=== PATIENT | male | born 1960 | race Caucasian/White ===

== ENCOUNTER 2024-08-22 14:15 | Outpatient (RCR) | payer OTHER, SELFPAY ==
--- NOTE | 2024-07-26 11:54 | OTOPEVAL1 ---
Assessment and note entered by Kamlesh Francis, JAY/Dianna, CHT Evaluation Information Assessment Status Evaluation Diagnosis Bilateral hand pain ICD-10 Condition Codes (OT) M79.641,M79.642 Subjective Information Patient is right handed. He reports bilateral thumb/wrist pain that has slowly gotten worse over time. Yesterday he reports he was doing some work around the house - washing exterior windows - and his pain got up to 10/10 with this. For relief patient typically tries to rest and complete ROM. Functionally he reports difficulties with gripping tasks, like opening a jar for instance. Assessment OT Clinical Summary Patient presents with bilateral thumb pain consistent with 1st [facility] OA. He presents with decreased mobility, weakness, and pain that limits functional hand use for ADLs. Today a hand based thumb spica was fabricated for the right hand. He demonstrates the ability to write and complete fine motor tasks with the orthotic donned. Educated on treatment plan for OA dx - reducing pain and inflammation through orthotics, ROM, joint protection techniques, and use of modalities . Continued skilled OT indicated for follow ups to progress HEP and to fabricate a left thumb orthosis. Plan of Care Interventions Therapeutic Exercise,Manual Therapy,Therapeutic Activities,Hot Pack/Cold Pack,Check Out for Orthotic/Pr,Ultrasound,Paraffin Treatment Frequency and 1x/week for 4 visits Duration These treatments will address the objective and functional deficits as defined above. The patient will be advanced safely and appropriately in order for the patient to progress towards his/her prior level of function. Additional exercises will be introduced and as well as a comprehensive home exercise program upon discharge, if needed, ?to ensure carryover of functional gains achieved in the clinic. This treatment plan has been reviewed and agreement upon by the patient.
--- NOTE | 2024-07-26 11:55 | OPREHPOC ---
Outpatient Therapy Plan of Care This is a Multidisciplinary Plan of Care that may contain components documented by all disciplines (PT, OT, and ST.) OT Problem 1 OT Problem #1 Knowledge Deficit OT Goal 1 Goal / Goal Update 1. Patient to be independent with instructed materials. Target Visit 4 OT Problem 2 OT Problem #2 Pain OT Goal 1 Goal / Goal Update 1. Patient to report no instances of 10/10 pain. 2. Patient to report reduced bilateral thumb pain to 5/10 at worst . Target Visit 4 OT Problem 3 OT Problem #3 Impaired Strength OT Goal 1 Goal / Goal Update To improve bilateral thumb use for ADLs patient to : - be able to complete bilateral retail coverage merchandiser/pinch strengthening with yellow putty without pain Target Visit 4
--- NOTE | 2024-08-22 15:02 | OTOPDC ---
Assessment and note entered by Kamlesh Francis, OTR/L, ANDRES OT D/C Summary 08/22/24 Assessment Status Discharge Diagnosis Bilateral hand pain ICD-10 Condition Codes (OT) M79.641,M79.642 Subjective Information Patient presents today for OT re-assessment. Overall he is reporting his pain is the same. Walking in he reports bilateral thumb pain is 1-2/ 10. He reports his pain never gets down to 0/10. In the last week his pain has gotten up to 8/10 at worst . Bilateral thumb orthotics were fabricated for the patient and he reports he wears these at rest. When he is using his hands he removes them. He reports no change in his ability to open a jar or pinch. Assessment OT Clinical Summary Patient presents with bilateral thumb pain consistent with 1st [facility] OA. Patient declined weekly visits and only wanted to follow up every other week. Patient did not wear [facility] orthotics as recommended. Reviewed nature of OA and the importance of rest when in periods of inflammation . Reviewed importance of modifying tasks. Reviewed ROM HEP to maintain his flexibility. Patient is able to complete camper assembler and pinch strengthening with cues for form. Patient is able to complete wrist strengthening with 2 lb. free weights with no increase in his pain. Patient is currently independent with all materials. He is also traveling to [place] for the winter. D/C OT with HEP. Plan of Care OT Services Indicated No
== END 2024-08-23 10:31 | disposition home or self-care (01) ==
LOC: ANHOT 14:15
DX: M79.641 Pain in right hand (principal); M79.642 Pain in left hand
CPT/HCPCS: 97018; 97110; 97165; L3913